=== PATIENT | male | born 1985 | race Caucasian/White ===

== ENCOUNTER 2016-04-17 12:21 | Emergency (ER) | payer BC ==
[2016-04-17 12:33] VITALS: RESP 16
--- NOTE | 2016-04-17 12:40 | CPEKG ---
Heart Rate: 64 RR Interval: 938 P-R Interval: 152 QRSD Interval: 112 QT Interval: 404 QTC Interval: 417 P [place]: 74 QRS [place]: 71 T Wave [place]: -23 EKG Severity - ABNORMAL ECG - EKG Impression: SINUS RHYTHM EKG Impression: INCOMPLETE RIGHT BUNDLE BRANCH BLOCK Electronically Signed By: Tank Sandoval 17-Apr-2016 15:04:56
[2016-04-17 13:20] LABS: ANION GAP 9 mEq/L (8-16); CALCIUM 9.5 mg/dL (8.5-10.4); CARBON DIOXIDE 29 mEq/l (22-31); CHLORIDE 104 mEq/L (97-110); CREATININE 0.9 mg/dL (0.7-1.3); GLOMERULAR FILTRATION RATE > 60; GLUCOSE 77 mg/dL (70-100); POTASSIUM 4.2 mEq/L (3.5-5.2); SODIUM 142 mEq/L (134-144)
[2016-04-17 13:31] LABS: TROPONIN I < 0.012 ng/mL (0-0.034)
[2016-04-17 13:35] VITALS: BP 130/80; TEMP 97.9
[2016-04-17] MEDS ORDERED: IOPAMIDOL (ISOVUE 370) 100 ML BTL IV ONE (14:00)
[2016-04-17 14:45] LABS: % IMMATURE GRANULYOCYTES 0.2 % (0.0-1.1); ABSOLUTE IMMATURE GRANULOCYTES 0.01 10^3/uL (0.00-0.10); ADD DIFF? NO; ADD MORPH? NO; ADD SCAN? NO; ATYPICAL LYMPHOCYTE FLAG 10 (0-99); FRAGMENT RBC FLAG 0 (0-99); HEMATOCRIT 46.4 % (40.0-51.0); HEMOGLOBIN 15.8 g/dL (13.7-17.5); LEFT SHIFT FLG 0 (0-99); LIPEMIA HEMOLYSIS FLAG 90 (0-99); MEAN CELL HEMOGLOBIN 31.1 pg (27.9-34.1); MEAN CELL HEMOGLOBIN CONCENTR. 34.1 g/dL (32.4-36.7); MEAN CELL VOLUME 91.3 fL (81.5-99.8); MEAN PLATELET VOLUME 9.8 fL (8.7-11.7); PLATELET CLUMPS FLAG 0 (0-99); PLATELET COUNT 231 10^3/uL (150-400); RED BLOOD CELL COUNT 5.08 10^6/uL (4.40-6.38); RED CELL DISTRIBUTION WIDTH 11.9 % (11.5-15.2)
--- NOTE | 2016-04-17 14:53 | CT ---
CT Chest Angiogram Comparison: None Indication: Dyspnea. Left sternal chest pain. Technique: Thinly collimated multidetector helical CT imaging was performed through the chest while 90 mL of Isovue-370 were injected intravenously without complication. The images were then transferr ed to an independent workstation where multiplanar reconstructions were performed. Dose reduction pasquale hniques were utilized. Findings: CT Chest Angiogram: The pulmonary arterial system is well opacified. No intraluminal filling defect s to suggest acute or chronic thrombopulmonary embolic disease. The thoracic aorta is normal caliber . No aneurysm or dissection. CT Chest: The lungs are clear. No pulmonary nodule, mass, or enlarged lymph nodes. Heart size is nor mal. No pericardial or pleural effusion. Calcification is seen in the region of the distal rotator c uff overlying the greater tuberosity in both shoulders. The imaged portion of the upper abdomen is ne gative. Impression: 1. No evidence of thrombopulmonary embolic disease. 2. Probable calcific tendinitis in both shoulders. Results called to Panda Silva PA-C.
--- NOTE | 2016-04-17 15:20 | EDPHY ---
H & P Stated Complaint: Intermitt L ant CP & along L upper arm x 5 days after international flight Time Seen by Provider: 04/17/16 12:35 HPI/ROS: Chief complaint: Chest pain History of present illness: This is a 31-year-old male who presents to the emergency department for evaluation of chest pain. Patient reports the onset of symptoms approximately 5 days ago. States the pain is in the center left upper aspect of the chest. It is a soreness. It radiates into the arms and back. He is concerned it may be due to the fact that he has recently flown extensively including internationally. He denies other potential precipitating factors. He denies alleviating factors. He denies other associated signs or symptoms including no fevers or cold-like symptoms, no cough, no shortness of breath, no pain or swelling in the legs. Review of systems: A 10 point review of systems was obtained and other than described above was negative - Personal History Current Tetanus Diphtheria and Acellular Pertussis (TDAP): No - Medical/Surgical History Other PMH: healthy - Social History Smoking Status: Never smoked - Physical Exam Exam: General Appearance: Alert, nontoxic. Eyes: Pupils equal and round no pallor or injection. ENT, Mouth: Mucous membranes moist. Respiratory: There are no retractions, lungs are clear to auscultation. Cardiovascular: Regular rate and rhythm. Gastrointestinal: Abdomen is soft and non tender, no masses, bowel sounds normal. Neurological: Alert and oriented. Strength and sensation intact and symmetrical. Skin: Warm and dry, no rashes. Musculoskeletal: There is tenderness over the left anterior chest wall without crepitus, bony deformity or subcutaneous air. Psychiatric: Patient is oriented X 3, there is no agitation. Constitutional: Initial Vital Signs Temperature (C) 36.7 C 04/17/16 12:29 Heart Rate 70 04/17/16 12:29 Respiratory Rate 16 04/17/16 12:29 Blood Pressure 104/86 H 04/17/16 12:29 O2 Sat (%) 97 04/17/16 12:29 O2 Delivery Mode Room Air Allergies/Adverse Reactions: antibx Allergy (Unknown, Uncoded 04/17/16 12:33) as child Home Medications: Medication Instructions Recorded NK [No Known Home Meds] 04/17/16 Medical Decision Making - Diagnostics Imaging: CT of the chest is negative for PE ED Course/Re-evaluation: Patient discussed with my secondary supervising physician Dr. Tank Sandoval. Patient presents to the emergency department for chest pain. On presentation he is nontoxic. Afebrile and vital signs are stable. Patient is evaluated. No specific cause for symptoms are noted. I do believe patient is appropriate for outpatient management. Patient will be discharged home. Home care is discussed. He is asked to follow up with a primary care doctor for recheck and referral information is given. Strict return precautions are given. Patient voiced understanding and agreement with plan. Differential Diagnosis: Included but not limited to musculoskeletal pain, GERD, ACS, cardiac dysrhythmia , PE, pulmonary infections, pneumothorax - Data Points Laboratory Results: Laboratory Results 04/17/16 12:40 04/17/16 12:40 Departure - Departure Disposition: Home, Routine, Self-Care Clinical Impression: Chest pain Qualifiers: Chest pain type: unspecified Qualifier Code: (R07.9) Chest pain, unspecified Condition: Good Instructions: Chest Pain (ED) Additional Instructions: Follow-up with your primary care doctor this week for continued evaluation and care If symptoms worsen or new symptoms develop return to the emergency department for recheck Referrals: Riya Stallworth MD [Primary Care Provider] - As per Instructions
[2016-04-17 15:42] VITALS: PULSE 79; O2SAT 97
== END 2016-04-17 15:37 | disposition home or self-care (01) ==
DX: R07.9 Chest pain, unspecified (principal)
CPT/HCPCS: Q9967